=== PATIENT | female | born 1955 | race Caucasian/White ===

== ENCOUNTER 2020-12-11 17:15 | Inpatient (IN) | payer MEDICARE, MEDICAID ==
[~2020-12-11] VITALS: Ht 165.1 cm; Wt 72.1 kg
--- NOTE | 2020-12-11 18:00 | NUR ---
PT ARRIVED SOILED WITH DRIED STOOL AND URINE.
--- NOTE | 2020-12-11 18:20 | NUR ---
CLEANED PATIENT AND CHANGED LINEN, HOWEVER PATIENT RESISTIVE AND BECAME AGITATED WITH THIS PROCESS.
[2020-12-11 18:36] LABS: BASOPHILS # (AUTO) 0.1 X10'3 (0-0.2); BASOPHILS % (AUTO) 0.8 % (0-1); EOSINOPHILS % (AUTO) 0.1 % (0-6); HEMATOCRIT 35.3 % (35.0-45.0); HEMOGLOBIN 11.8 g/dl (12.0-16.0); LYMPHOCYTES # (AUTO) 1.4 X10'3 (1.1-4.8); LYMPHOCYTES % (AUTO) 14.6 % (21-51); MEAN CORPUSCULAR HEMOGLOBIN 29.9 PG (27.0-31.0); MEAN CORPUSCULAR HGB CONC 33.4 g/dL (33.0-36.5); MEAN CORPUSCULAR VOLUME 89.5 FL (78-98); MEAN PLATELET VOLUME 7.7 FL (7.4-10.4); MONOCYTES # (AUTO) 0.6 X10'3 (0-0.9); MONOCYTES % (AUTO) 6.3 % (2-12); NEUTROPHILS # (AUTO) 7.4 X10'3 (1.8-7.7); NEUTROPHILS % (AUTO) 78.2 % (42-75); PLATELET COUNT 423 X10'3 (140-440); RED BLOOD COUNT 3.95 X10'6 (4.20-5.60); WHITE BLOOD COUNT 9.5 X10'3 (4.5-11.0)
[2020-12-11 18:40] LABS: ALANINE AMINOTRANSFERASE 15 U/L (12-78); ALBUMIN 3.5 G/DL (3.4-5.0); ALBUMIN/GLOBULIN RATIO 0.7 (1.1-1.5); ALKALINE PHOSPHATASE 85 IU/L (46-116); ANION GAP 13 (8-16); ASPARTATE AMINO TRANSFERASE 15 U/L (10-37); BILIRUBIN,TOTAL 0.3 MG/DL (0.1-1.0); BLOOD UREA NITROGEN 20 MG/DL (7-18); CALCIUM 9.8 MG/DL (8.5-10.1); CHLORIDE 106 MMOL/L (99-107); CREATININE 0.91 MG/DL (0.40-0.90); GLUCOSE 113 MG/DL (70-104); POTASSIUM 3.8 MMOL/L (3.5-5.1); SODIUM 144 MMOL/L (135-145); TOTAL CARBON DIOXIDE 24.7 MMOL/L (24-32); TOTAL PROTEIN 8.4 G/DL (6.4-8.2); eGFR 62 ML/MIN
[2020-12-11 18:50] LABS: MAGNESIUM 2.2 MG/DL (1.5-2.4)
[2020-12-11 18:52] LABS: ACETAMINOPHEN < 2.0 UG/ML (10-30)
--- NOTE | 2020-12-11 19:08 | NUR ---
CALLED POISON CONTROL CASE# [id number] SUGGESTED BLOOD ALCOHOL AND AMMONIA LEVEL GABAPENTIN PEAK 2-4 HOURS WATCH FOR 6 HOURS FROM ARRIVAL TIME UNTIL RETURNED TO MENTAL BASELINE IF NARCAN IS GIVEN WATCH FOR 4 HRS REPEAT SALICYLATE 2-4 HOURS UNTIL NEGATIVE SUPPORTIVE CARE.
[2020-12-11 19:44] LABS: ETHANOL < 0.010 GM/DL (0.0-0.010)
--- NOTE | 2020-12-11 22:09 | NUR ---
PT SOILED HERSELF BUT IS REFUSING HELP TO CLEAN AND SWITCH BRIEFS.
--- NOTE | 2020-12-11 23:06 | NUR ---
UPDATE POISON CONTROL ON LABS AND VS. WILL REPEAT SALICYLATE.
[2020-12-11] MEDS ORDERED: HYDR25TA5 PO (23:45)
[2020-12-11] MEDS ORDERED: DULO60CA59 PO (23:45)
[2020-12-11] MEDS ORDERED: GABA600T13 PO (23:45)
[2020-12-11] MEDS ORDERED: BACL-11 PO (23:45)
[2020-12-11] MEDS ORDERED: ESZO2TAB22 PO (23:45)
[2020-12-11] MEDS ORDERED: QUET-1 PO (23:45)
--- NOTE | 2020-12-12 00:41 | NUR ---
ASSUMED CARE OF PT. PT RESTING COMFORTABLY. EQUAL RISE AND FALL OF CHEST.
[2020-12-12] MEDS ORDERED: acetaminophen 325mg tablet PO PRN ×2 (01:55)
[2020-12-12] MEDS ORDERED: magnesium hydroxide 30ml (MOM) UD suspension PO PRN (01:55)
[2020-12-12] MEDS ORDERED: ondansetron/PF 4mg/2ml inj IV PRN (01:55)
[2020-12-12] MEDS: dextrose 5%-1/2 normal saline 1,000 ML IV SCH ×3 (01:55→22:16)
[2020-12-12] MEDS ORDERED: diphenhydrAMINE 50 mg/ml inj IV PRN (01:55)
[2020-12-12] MEDS ORDERED: ondansetron 4mg rapidly disintigrating tab PO PRN (01:55)
[2020-12-12] MEDS ORDERED: acetaminophen 650mg rectal suppository RC PRN (01:55)
[2020-12-12] MEDS ORDERED: mag hydrox/Alum hydrox/simeth 30ml oral suspension PO PRN (01:55)
[2020-12-12] MEDS ORDERED: bisacodyl 10mg suppository rectal RC PRN (01:55)
[2020-12-12] MEDS ORDERED: HYDROcodone/acetaminophen 5mg/325mg tablet PO PRN (01:55)
[2020-12-12] MEDS ORDERED: diphenhydrAMINE 25mg capsule PO PRN (01:55)
[2020-12-12] MEDS ORDERED: morphine 2 MG/ML inj. syringe IV PRN ×2 (01:55)
[2020-12-12 02:57] LABS: D-DIMER 1.19 MG/L FEU (0-0.50); PARTIAL THROMBOPLASTIN TIME 22 SECONDS (22-32)
[2020-12-12 03:00] LABS: HEMOGLOBIN A1C 7.3 % (4.5-6.2)
[2020-12-12 03:06] LABS: LIPASE 103 U/L (73-393); PHOSPHORUS 3.9 MG/DL (2.3-4.5); TROPONIN I < 0.04 NG/ML (0.0-0.05)
--- NOTE | 2020-12-12 04:33 | NUR ---
PT HAS BEEN CLEANED. URINE SAMPLE OBTAINED.
[2020-12-12 04:55] LABS: URINE AMPHETAMINE SCREEN POSITIVE (Neg); URINE BARBITUATE SCREEN NEGATIVE (Neg); URINE BENZODIAZEPINES SCREEN NEGATIVE (Neg); URINE CANNABINOID SCREEN NEGATIVE (Neg); URINE COCAINE SCREEN NEGATIVE (Neg); URINE METHADONE SCREEN NEGATIVE (Neg); URINE OPIATE SCREEN NEGATIVE (Neg); URINE PHENCYCLIDINE SCREEN NEGATIVE (Neg)
[2020-12-12 05:17] LABS: CLARITY,URINE CLEAR (Clear); COLOR,URINE YELLOW (Yellow); UA COLLECTION TYPE NON-SPECIFIED
[2020-12-12 05:18] LABS: GLUCOSE, URINE NEGATIVE (Neg); KETONES,URINE NEGATIVE (Neg); LEUKOCYTE ESTERASE ,URINE NEGATIVE (Neg); NITRITES, URINE NEGATIVE (Neg); OCCULT BLOOD,URINE NEGATIVE (Neg); PROTEIN,URINE NEGATIVE (Neg); UROBILINOGEN,URINE 0.2 E.U/dL (0.2-1.0)
[2020-12-12] MEDS ORDERED: dextrose ORAL solution 15 GM/59 ML bottle PO PRN ×2 (06:45)
[2020-12-12] MEDS ORDERED: glucagon, human recombinant 1mg kit SUBCUT PRN (06:45)
[2020-12-12] MEDS ORDERED: insulin Lispro (HumaLOG) vial - multi-dose SQ SCH (06:45)
[2020-12-12] MEDS ORDERED: MESSAGE TO PHARMACY PO ONE (06:45)
[2020-12-12] MEDS ORDERED: dextrose 50%-water 50ml dispensing syringe IV PRN ×2 (06:45)
--- NOTE | 2020-12-12 06:45 | NUR ---
PT INCONTENENT OF URINE AND STOOL. PT REFUSING TO TURN AND PUSHING MY HANDS AWAY I PROVIDED NIA CARE. PT CRIES OUT SAYING "OWE" WHENVER I TOUCH THE SKIN OF HER LOWER EXTREMITIES. I ASKED PT "DOES IT HURT WHEN I TOUCH YOUR SKIN?" PT RESPONDED "YES". WHEN PT INSTRUCTED TO RAISE ARM, THERE WAS AN ATTEMPT BUT UNABLE TO LIFT ARM FROM BED ON COMMAND HOWEVER NO MUSCLE WEAKNESS WAS NOTED WHEN SHE WAS PUSHING ME AWAY. I ASKED PT TO FOLLOW MY FINGERS WITH JUST HER EYES AND SHE LOOKED AWAY STATING "I CANT".
[2020-12-12] MEDS: docusate sod 100mg capsule PO SCH ×2 (08:00→20:00)
[2020-12-12] MEDS: pantoprazole 40 MG vial IV SCH (08:00)
[2020-12-12] MEDS: heparin, porcine 5000 units/ml vial SQ SCH ×2 (08:00→21:08)
--- NOTE | 2020-12-12 09:54 | NUR ---
SPOKE W/ POISON CONTROL TO PROVIDE UPDATE. NO NEW RECOMMENDATIONS PROVIDED.
[2020-12-12] MEDS: gabapentin 300mg capsule PO SCH ×2 (14:22→21:10)
--- NOTE | 2020-12-12 14:30 | NUR ---
Pt up to bedside commode. +void, small amount of stool.
--- NOTE | 2020-12-12 19:30 | NUR ---
Patient in room ED 13. I have received report from ERIBERTO VAZQUEZ and had the opportunity to ask questions and assume patient care.
[2020-12-12 20:02] VITALS: BP 141/63
[2020-12-12] MEDS ORDERED: insulin glargine (Lantus) pen - multi-dose SQ ONE (20:25)
[2020-12-12] MEDS: QUEtiapine 25mg tablet PO SCH (21:06)
[2020-12-12] MEDS: HYDROcodone/acetaminophen 10/325mg tab PO PRN (21:07)
[2020-12-12] MEDS: zolpidem 5mg tablet PO SCH (21:07)
[2020-12-12] MEDS: temazepam 15mg capsule PO PRN (21:09)
[2020-12-12 22:00] VITALS: BP 116/54
[2020-12-13] MEDS: gabapentin 300mg capsule PO SCH ×4 (01:56→20:08)
[2020-12-13 02:00] VITALS: BP 100/54
[2020-12-13 06:00] VITALS: BP 101/52
[2020-12-13 06:24] LABS: BASOPHILS # (AUTO) 0.1 X10'3 (0-0.2); BASOPHILS % (AUTO) 0.8 % (0-1); EOSINOPHILS # (AUTO) 0.1 X10'3 (0-0.9); EOSINOPHILS % (AUTO) 1.3 % (0-6); HEMATOCRIT 31.5 % (35.0-45.0); HEMOGLOBIN 10.4 g/dl (12.0-16.0); LYMPHOCYTES # (AUTO) 1.3 X10'3 (1.1-4.8); LYMPHOCYTES % (AUTO) 15.9 % (21-51); MEAN CORPUSCULAR HEMOGLOBIN 29.8 PG (27.0-31.0); MEAN CORPUSCULAR HGB CONC 33.1 g/dL (33.0-36.5); MEAN PLATELET VOLUME 7.9 FL (7.4-10.4); MONOCYTES # (AUTO) 0.6 X10'3 (0-0.9); NEUTROPHILS # (AUTO) 5.9 X10'3 (1.8-7.7); PLATELET COUNT 380 X10'3 (140-440); RED BLOOD COUNT 3.49 X10'6 (4.20-5.60); RED CELL DISTRIBUTION WIDTH 16.3 % (11.5-14.5); WHITE BLOOD COUNT 7.9 X10'3 (4.5-11.0)
--- NOTE | 2020-12-13 06:24 | NUR ---
Problems reprioritized. Patient report given, questions answered & plan of care reviewed with Dane VAZQUEZ.
[2020-12-13 06:46] LABS: ALANINE AMINOTRANSFERASE 22 U/L (12-78); ALBUMIN 2.7 G/DL (3.4-5.0); ALBUMIN/GLOBULIN RATIO 0.6 (1.1-1.5); ALKALINE PHOSPHATASE 73 IU/L (46-116); ANION GAP 13 (8-16); ASPARTATE AMINO TRANSFERASE 18 U/L (10-37); BILIRUBIN,TOTAL 0.2 MG/DL (0.1-1.0); BLOOD UREA NITROGEN 22 MG/DL (7-18); BUN/CREATININE RATIO 23.4 (6.6-38.0); CHLORIDE 107 MMOL/L (99-107); CHOL/HDL RATIO 4.1 (0.00-4.99); CHOLESTEROL 180 MG/DL (0-200); CREATININE 0.94 MG/DL (0.40-0.90); GLUCOSE 127 MG/DL (70-104); HDL CHOLESTEROL 44 MG/DL (35-60); LDL CHOLESTEROL 103 MG/DL (50-100); SODIUM 144 MMOL/L (135-145); TOTAL CARBON DIOXIDE 23.7 MMOL/L (24-32); TRIGLYCERIDES 134 MG/DL (20-135); eGFR 59 ML/MIN
[2020-12-13 06:47] LABS: POTASSIUM 2.8 MMOL/L (3.5-5.1)
--- NOTE | 2020-12-13 07:55 | NUR ---
promotional table spacer promotional table spacer Page Sent promotional table spacer PAGER ID: [phone] MESSAGE: [id number] hussein ferreira- Critical Lab :K 2.8, no replacement orders- sultana VAZQUEZ [phone] (78 character message out of a maximum of 240) CLOSE [X] SEND ANOTHER PAGE Thank you for visiting [facility] promotional table spacer promotional table spacer
[2020-12-13] MEDS: docusate sod 100mg capsule PO SCH ×2 (08:00→20:07)
[2020-12-13] MEDS ORDERED: potassium Cl 40MEQ/1/2NS 520ml 520 ML IV PRN (08:05)
[2020-12-13] MEDS ORDERED: magnesium 4gm in 100ml NS 100 ML IV PRN (08:05)
[2020-12-13] MEDS ORDERED: potassium Cl 20 mEq SR tablet PO PRN (08:05)
[2020-12-13] MEDS ORDERED: magnesium Cl slow-release 64mg tablet PO PRN (08:05)
[2020-12-13] MEDS: HYDROcodone/acetaminophen 10/325mg tab PO PRN ×4 (08:17→20:09)
[2020-12-13] MEDS: duloxetine 30mg CAPSULE.DR PO SCH (08:18)
[2020-12-13] MEDS: potassium Cl 20 mEq SR tablet PO PRN ×3 (08:18→16:36)
[2020-12-13] MEDS: pantoprazole 40 MG vial IV SCH (08:19)
[2020-12-13] MEDS: heparin, porcine 5000 units/ml vial SQ SCH ×2 (08:19→20:09)
[2020-12-13] MEDS: dextrose 5%-1/2 normal saline 1,000 ML IV SCH ×2 (08:45→16:37)
[2020-12-13] MEDS ORDERED: FLU VACC QS2021-22(6MOS UP)/PF 60 MCG/0.5 ML SYRINGE IM ONE (10:00)
[2020-12-13 11:00] VITALS: BP 96/46
--- NOTE | 2020-12-13 14:17 | NUR ---
Per H&P pt with T2DM, well controlled as A1c is 7.3%. Pt with ALOC on admit, documented as A/O x 2 and confused per physical assessment. Written DM education with RD contact information placed in patient's chart. Will remain available. Addendum: 12/13/20 at [address] Amended: Links added.
[2020-12-13 15:00] VITALS: BP 114/58
[2020-12-13 18:00] VITALS: BP 108/48
--- NOTE | 2020-12-13 18:00 | NUR ---
JAILENE Epperson in room U 3012. I have received report from JAILENE VAZQUEZ and had the opportunity to ask questions and assume patient care.
--- NOTE | 2020-12-13 18:00 | NUR ---
Patient in room PCU 3012. I have received report from JUNIOR VAZQUEZ and had the opportunity to ask questions and assume patient care.
--- NOTE | 2020-12-13 18:35 | NUR ---
Problems reprioritized. Patient report given, questions answered & plan of care reviewed with Theodora VAZQUEZ.
[2020-12-13] MEDS: K and/or MAG REPLACEMENT MC SCH (20:00)
[2020-12-13] MEDS: zolpidem 5mg tablet PO SCH (20:07)
[2020-12-13] MEDS: temazepam 15mg capsule PO PRN (20:07)
[2020-12-13] MEDS: insulin glargine (Lantus) pen - multi-dose SQ SCH (21:00)
[2020-12-13 22:00] VITALS: BP 132/53
[2020-12-13] MEDS: QUEtiapine 25mg tablet PO SCH (23:29)
[2020-12-14] MEDS: gabapentin 300mg capsule PO SCH ×4 (01:33→20:17)
[2020-12-14] MEDS: HYDROcodone/acetaminophen 10/325mg tab PO PRN ×5 (01:34→21:56)
[2020-12-14 02:00] VITALS: BP 116/55
[2020-12-14] MEDS: dextrose 5%-1/2 normal saline 1,000 ML IV SCH ×3 (03:11→17:41)
[2020-12-14 06:00] VITALS: BP 115/50
--- NOTE | 2020-12-14 06:34 | NUR ---
Patient in room PCU 3012. I have received report from Theodora VAZQUEZ and had the opportunity to ask questions and assume patient care.
--- NOTE | 2020-12-14 06:35 | NUR ---
Problems reprioritized. Patient report given, questions answered & plan of care reviewed with CHANDRAKANT VAZQUEZ.
[2020-12-14 06:47] LABS: ALANINE AMINOTRANSFERASE 20 U/L (12-78); ALBUMIN 2.6 G/DL (3.4-5.0); ALBUMIN/GLOBULIN RATIO 0.7 (1.1-1.5); ALKALINE PHOSPHATASE 67 IU/L (46-116); ANION GAP 9 (8-16); ASPARTATE AMINO TRANSFERASE 15 U/L (10-37); BILIRUBIN,TOTAL 0.3 MG/DL (0.1-1.0); BLOOD UREA NITROGEN 23 MG/DL (7-18); BUN/CREATININE RATIO 27.4 (6.6-38.0); CALCIUM 8.4 MG/DL (8.5-10.1); CHLORIDE 112 MMOL/L (99-107); CREATININE 0.84 MG/DL (0.40-0.90); GLUCOSE 126 MG/DL (70-104); POTASSIUM 3.9 MMOL/L (3.5-5.1); SODIUM 143 MMOL/L (135-145); TOTAL CARBON DIOXIDE 21.8 MMOL/L (24-32); TOTAL PROTEIN 6.3 G/DL (6.4-8.2); eGFR 68 ML/MIN
[2020-12-14 06:50] LABS: BASOPHILS # (AUTO) 0.1 X10'3 (0-0.2); BASOPHILS % (AUTO) 0.9 % (0-1); EOSINOPHILS # (AUTO) 0.2 X10'3 (0-0.9); EOSINOPHILS % (AUTO) 2.8 % (0-6); HEMOGLOBIN 9.5 g/dl (12.0-16.0); LYMPHOCYTES # (AUTO) 1.4 X10'3 (1.1-4.8); MEAN CORPUSCULAR HEMOGLOBIN 29.8 PG (27.0-31.0); MEAN CORPUSCULAR HGB CONC 32.8 g/dL (33.0-36.5); MEAN CORPUSCULAR VOLUME 90.9 FL (78-98); MONOCYTES # (AUTO) 0.5 X10'3 (0-0.9); MONOCYTES % (AUTO) 8.7 % (2-12); NEUTROPHILS # (AUTO) 3.5 X10'3 (1.8-7.7); NEUTROPHILS % (AUTO) 62.6 % (42-75); PLATELET COUNT 313 X10'3 (140-440); RED BLOOD COUNT 3.19 X10'6 (4.20-5.60); RED CELL DISTRIBUTION WIDTH 16.6 % (11.5-14.5); WHITE BLOOD COUNT 5.6 X10'3 (4.5-11.0)
[2020-12-14] MEDS: K and/or MAG REPLACEMENT MC SCH ×2 (08:00→20:00)
[2020-12-14] MEDS: heparin, porcine 5000 units/ml vial SQ SCH ×2 (08:00→20:18)
[2020-12-14] MEDS ORDERED: loperamide 2mg capsule PO PRN (08:45)
[2020-12-14] MEDS: pantoprazole 40 MG vial IV SCH (09:28)
[2020-12-14] MEDS: docusate sod 100mg capsule PO SCH ×2 (09:35→20:16)
[2020-12-14] MEDS: duloxetine 30mg CAPSULE.DR PO SCH (09:35)
[2020-12-14 11:00] VITALS: BP 112/58
[2020-12-14 15:00] VITALS: BP 105/48
[2020-12-14 18:00] VITALS: BP 114/59
--- NOTE | 2020-12-14 18:09 | NUR ---
Problems reprioritized. Patient report given, questions answered & plan of care reviewed with Nu VAZQUEZ .
[2020-12-14] MEDS: QUEtiapine 25mg tablet PO SCH (20:17)
[2020-12-14] MEDS: zolpidem 5mg tablet PO SCH (20:17)
[2020-12-14] MEDS: insulin glargine (Lantus) pen - multi-dose SQ SCH (21:00)
[2020-12-14 22:00] VITALS: BP 111/49
[2020-12-15 02:00] VITALS: BP 99/36
[2020-12-15] MEDS: gabapentin 300mg capsule PO SCH ×4 (02:14→19:21)
[2020-12-15] MEDS: dextrose 5%-1/2 normal saline 1,000 ML IV SCH (02:15)
[2020-12-15 06:00] VITALS: BP 91/40
[2020-12-15 06:15] LABS: BASOPHILS % (AUTO) 0.6 % (0-1); EOSINOPHILS # (AUTO) 0.2 X10'3 (0-0.9); EOSINOPHILS % (AUTO) 3.3 % (0-6); HEMATOCRIT 29.3 % (35.0-45.0); HEMOGLOBIN 9.5 g/dl (12.0-16.0); LYMPHOCYTES # (AUTO) 1.1 X10'3 (1.1-4.8); LYMPHOCYTES % (AUTO) 20.8 % (21-51); MEAN CORPUSCULAR HEMOGLOBIN 29.6 PG (27.0-31.0); MEAN CORPUSCULAR HGB CONC 32.5 g/dL (33.0-36.5); MEAN CORPUSCULAR VOLUME 91.1 FL (78-98); MONOCYTES # (AUTO) 0.4 X10'3 (0-0.9); MONOCYTES % (AUTO) 8.3 % (2-12); NEUTROPHILS # (AUTO) 3.6 X10'3 (1.8-7.7); PLATELET COUNT 316 X10'3 (140-440); RED BLOOD COUNT 3.21 X10'6 (4.20-5.60); RED CELL DISTRIBUTION WIDTH 15.6 % (11.5-14.5); WHITE BLOOD COUNT 5.3 X10'3 (4.5-11.0)
[2020-12-15 06:27] LABS: ALANINE AMINOTRANSFERASE 19 U/L (12-78); ALBUMIN 2.6 G/DL (3.4-5.0); ALBUMIN/GLOBULIN RATIO 0.7 (1.1-1.5); ALKALINE PHOSPHATASE 66 IU/L (46-116); ANION GAP 7 (8-16); ASPARTATE AMINO TRANSFERASE 12 U/L (10-37); BILIRUBIN,TOTAL 0.2 MG/DL (0.1-1.0); BLOOD UREA NITROGEN 15 MG/DL (7-18); BUN/CREATININE RATIO 22.4 (6.6-38.0); CALCIUM 8.7 MG/DL (8.5-10.1); CHLORIDE 108 MMOL/L (99-107); CREATININE 0.67 MG/DL (0.40-0.90); GLUCOSE 116 MG/DL (70-104); SODIUM 140 MMOL/L (135-145); TOTAL CARBON DIOXIDE 24.9 MMOL/L (24-32); TOTAL PROTEIN 6.3 G/DL (6.4-8.2); eGFR 88 ML/MIN
--- NOTE | 2020-12-15 06:35 | NUR ---
Patient in room PCU 3012. I have received report from Nu VAZQUEZ and had the opportunity to ask questions and assume patient care.
--- NOTE | 2020-12-15 07:05 | NUR ---
PAGER ID: [phone] MESSAGE: Patient Lyubov Holloway room 3012A has a BP of 91/40, map of 57, HR of 71 please advise Lola VAZQUEZ ext: [phone].
[2020-12-15] MEDS: pantoprazole 40 MG vial IV SCH (07:54)
[2020-12-15] MEDS: docusate sod 100mg capsule PO SCH ×2 (07:55→19:24)
[2020-12-15] MEDS: heparin, porcine 5000 units/ml vial SQ SCH ×2 (07:55→19:23)
[2020-12-15] MEDS: duloxetine 30mg CAPSULE.DR PO SCH (07:55)
[2020-12-15] MEDS: K and/or MAG REPLACEMENT MC SCH ×2 (08:00→20:00)
[2020-12-15] MEDS: HYDROcodone/acetaminophen 10/325mg tab PO PRN ×3 (08:06→18:07)
[2020-12-15] MEDS: normal saline 1000ml 1,000 ML IV SCH ×2 (08:07→15:57)
[2020-12-15 11:00] VITALS: BP 115/47
--- NOTE | 2020-12-15 11:31 | NUR ---
PAGER ID: [phone] MESSAGE: Patient Lyubov Holloway room 3013G these are her 1100 vitals. BP 115/47, map of 70, HR 73. Please advise Lola Montesinos RN ext [phone].
[2020-12-15 15:58] VITALS: BP 102/46
--- NOTE | 2020-12-15 17:55 | NUR ---
I agree with Preceptee Lola VAZQUEZ's physical assessment and charting.
[2020-12-15 18:00] VITALS: BP 113/51
--- NOTE | 2020-12-15 18:10 | NUR ---
Problems reprioritized. Patient report given, questions answered & plan of care reviewed with Nu VAZQUEZ and Shae VAZQUEZ.
[2020-12-15] MEDS: QUEtiapine 25mg tablet PO SCH (20:03)
[2020-12-15] MEDS: zolpidem 5mg tablet PO SCH (20:03)
[2020-12-15] MEDS: insulin glargine (Lantus) pen - multi-dose SQ SCH (21:00)
[2020-12-15 22:00] VITALS: BP 101/35
[2020-12-16] MEDS: normal saline 1000ml 1,000 ML IV SCH (01:57)
[2020-12-16 02:00] VITALS: BP 109/53
[2020-12-16] MEDS: gabapentin 300mg capsule PO SCH ×2 (02:13→07:35)
[2020-12-16] MEDS: HYDROcodone/acetaminophen 10/325mg tab PO PRN ×3 (02:14→12:41)
--- NOTE | 2020-12-16 06:08 | NUR ---
Problems reprioritized. Patient report given, questions answered & plan of care reviewed with GEORGE Webber.
--- NOTE | 2020-12-16 06:14 | NUR ---
[place] Medication Administration: For this medication-pass time frame, all medication were reviewed, dispensed, administered and documented per hospital policy by GEORGE Kaufman. [place] documentation: I have reviewed and agree with all interventions, assessments performed and documented by GEORGE Kaufman.
[2020-12-16 06:19] LABS: EOSINOPHILS # (AUTO) 0.1 X10'3 (0-0.9); EOSINOPHILS % (AUTO) 2.7 % (0-6); HEMATOCRIT 28.8 % (35.0-45.0); HEMOGLOBIN 9.6 g/dl (12.0-16.0); LYMPHOCYTES # (AUTO) 1.1 X10'3 (1.1-4.8); LYMPHOCYTES % (AUTO) 23.7 % (21-51); MEAN CORPUSCULAR HEMOGLOBIN 30.1 PG (27.0-31.0); MEAN CORPUSCULAR HGB CONC 33.3 g/dL (33.0-36.5); MEAN CORPUSCULAR VOLUME 90.5 FL (78-98); MEAN PLATELET VOLUME 7.8 FL (7.4-10.4); MONOCYTES # (AUTO) 0.4 X10'3 (0-0.9); MONOCYTES % (AUTO) 8.9 % (2-12); NEUTROPHILS # (AUTO) 3.1 X10'3 (1.8-7.7); NEUTROPHILS % (AUTO) 63.7 % (42-75); PLATELET COUNT 314 X10'3 (140-440); RED BLOOD COUNT 3.18 X10'6 (4.20-5.60); RED CELL DISTRIBUTION WIDTH 15.7 % (11.5-14.5); WHITE BLOOD COUNT 4.8 X10'3 (4.5-11.0)
--- NOTE | 2020-12-16 06:40 | NUR ---
Patient in room PCU 3012. I have received report from GEORGE Judge and had the opportunity to ask questions and assume patient care.
[2020-12-16 06:41] LABS: ALANINE AMINOTRANSFERASE 17 U/L (12-78); ALBUMIN 2.4 G/DL (3.4-5.0); ALBUMIN/GLOBULIN RATIO 0.6 (1.1-1.5); ALKALINE PHOSPHATASE 69 IU/L (46-116); ANION GAP 5 (8-16); ASPARTATE AMINO TRANSFERASE 12 U/L (10-37); BILIRUBIN,TOTAL 0.2 MG/DL (0.1-1.0); BLOOD UREA NITROGEN 16 MG/DL (7-18); BUN/CREATININE RATIO 22.5 (6.6-38.0); CALCIUM 8.7 MG/DL (8.5-10.1); CHLORIDE 104 MMOL/L (99-107); CREATININE 0.71 MG/DL (0.40-0.90); GLUCOSE 104 MG/DL (70-104); POTASSIUM 3.5 MMOL/L (3.5-5.1); SODIUM 133 MMOL/L (135-145); TOTAL CARBON DIOXIDE 24.5 MMOL/L (24-32); TOTAL PROTEIN 6.3 G/DL (6.4-8.2); eGFR 82 ML/MIN
[2020-12-16 07:00] VITALS: BP 111/48
[2020-12-16] MEDS ORDERED: pantoprazole 40mg Tablet.DR PO SCH (07:30)
[2020-12-16] MEDS: duloxetine 30mg CAPSULE.DR PO SCH (07:35)
[2020-12-16] MEDS: docusate sod 100mg capsule PO SCH (07:35)
[2020-12-16] MEDS: heparin, porcine 5000 units/ml vial SQ SCH (07:36)
[2020-12-16] MEDS: K and/or MAG REPLACEMENT MC SCH (08:00)
[2020-12-16 11:00] VITALS: BP 114/65
--- NOTE | 2020-12-16 11:02 | NUR ---
Met with patient in regards to substance use to see if patient wanted resources for treatment options. Patient declined and said that her usage was a slip up and that she has it under control. I left patient my card in case she changes her mind.
--- NOTE | 2020-12-16 12:47 | NUR ---
Patient stable for discharge per md orders. All instructions were given, questions answered appropriately. All belongings were collected and sent with pt. PIV discontinued, cannula intact. Tele discontinued, television specialist notified. Informed pt to follow up with pcp within one week. Wheeled pt to lobby and assisted into vehicle with .
== END 2020-12-16 12:47 | disposition home or self-care (01) | DRG 917 ==
LOC: ER 17:16 → ED HOLD 12-12 01:55 → UNDOADMIN 12-12 01:55 → ED HOLD 12-12 02:20 → PCU 3S 12-12 20:15 → ED HOLD 12-12 20:15
PROVIDERS: ADMIT Family Medicine; ATTEND Internal Medicine
DX: T43.621A Poisoning by amphetamines, accidental (unintentional), initial encounter (principal); G92.8 Other toxic encephalopathy; F15.129 Other stimulant abuse with intoxication, unspecified; E11.9 Type 2 diabetes mellitus without complications; G89.4 Chronic pain syndrome; E87.6 Hypokalemia; M54.50 Low back pain, unspecified; R15.9 Full incontinence of feces; I10 Essential (primary) hypertension; K21.9 Gastro-esophageal reflux disease without esophagitis; Z79.891 Long term (current) use of opiate analgesic; Z79.899 Other long term (current) drug therapy; Z98.1 Arthrodesis status; Z23 Encounter for immunization; Y92.89 Other specified places as the place of occurrence of the external cause
CPT/HCPCS: 36415; 70450; 71250; 72125; 72128; 72131; 74176; 80053; 80061; 80305; 80320; 80329; 81003; 82140; 82948; 83036; 83690; 83735; 83880; 84100; 84439; 84443; 84484; 85025; 85379; 85610; 85730; 93005; 96365; 97110; 97161; 97530; 99285; C9113; G0378; J1644; J1815; J7030